=== PATIENT | female | born 1985 | race African-American/Black ===

== ENCOUNTER 2018-02-22 13:38 | Emergency (ER) | payer BC ==
[2018-02-22 13:43] VITALS: BMI 27.9
--- NOTE | 2018-02-22 14:29 | PDOC ---
History of Present Illness - General Chief Complaint: Vaginal Bleeding Stated Complaint: VAGINAL BLEEDING Time Seen by Provider: 02/22/18 13:50 History Source: Patient Exam Limitations: No Limitations - History of Present Illness Initial Comments: 02/22/18 14:16 32 yo female 1 miss talamantes currently between 5-6 weeks presents to the ED for 1 day of bloody vaginal discharge. Pt states she went to the bathroom to urinate today and after wiping noted maroon colored blood but denies continued bleeding or spotting. Of note, pt recently went to ED in [place] and told she was and also had a UTI, given antibiotics but only took 2 days of the 5 due to nausea. Patient had recent appointment with MOTION DESIGNER and told her beta HCG was in the 8000s and an IUP was visualized but FHR unattainable at that time. Today, pt denies abdominal pain/cramping, lightheadedness, continued discharge, N/V/F/C, burning or increased freq on urination, changes in bowel habits, hx of STDs (1 partner for the past 10 years) Past History - Past Medical History Allergies/Adverse Reactions: Allergies Allergy/AdvReac Type Severity Reaction Status Date / Time No Known Allergies Allergy Verified 02/22/18 13:43 Home Medications: Ambulatory Orders Cephalexin [Keflex] 500 mg PO BID 7 Days #14 capsule 02/22/18 Pnv No.103/Folic/Om3s/Fish Oil [ Gummies] 1 each PO ONCE 10 Days #10 tab.chew 02/22/18 COPD: No - Surgical History Appendectomy: Yes - Suicide/Smoking/Psychosocial Hx Smoking History: Never smoked Review of Systems - Review of Systems Constitutional: No: Chills, Fever Respiratory: No: Shortness of Breath Cardiac (ROS): No: Chest Pain ABD/GI: Yes: Other (no abdominal pain or cramping). No: Constipated, Diarrhea, Nausea, Vomiting : No: Burning, Dysuria, Discharge, Frequency Musculoskeletal: No: Back Pain Neurological: No: Numbness, Paresthesia, Weakness, Unsteady Gait, Dizziness *Physical Exam - Vital Signs Last Vital Signs Temp Pulse Resp BP Pulse Ox 98.5 F 93 H 18 125/67 98 02/22/18 13:41 02/22/18 13:41 02/22/18 13:41 02/22/18 13:41 02/22/18 13:41 - Physical Exam General Appearance: Yes: Nourished, Appropriately Dressed. No: Apparent Distress HEENT: positive: EOMI Respiratory/Chest: positive: Lungs Clear, Normal Breath Sounds Cardiovascular: positive: Regular Rhythm, Regular Rate, S1, S2. negative: Edema , JVD, Murmur Vascular Pulses: Dorsalis-Pedis (R): 4+, Doralis-Pedis (L): 4+ Female Pelvic Exam: positive: normal external exam, cervical os closed, normal adnexa, discharge (dark brown non oderess in the vagina on speculum exam). negative: CMT, vaginal bleeding Gastrointestinal/Abdominal: positive: Normal Bowel Sounds, Flat, Soft. negative : Pulsatile Mass, Distended, Guarding, Rebound, Tenderness Integumentary: positive: Normal Color, Dry, Warm Neurologic: positive: Fully Oriented, Alert, Normal Mood/Affect ED Treatment Course - LABORATORY CBC & Chemistry Diagram: 02/22/18 14:09 02/22/18 14:09 - RADIOLOGY Radiology Studies Ordered: Category Date Time Status TRANSVAGINAL US PREG [US] Stat Ultrasound 02/22/18 14:06 Ordered *DC/Admit/Observation/Transfer Diagnosis at time of Disposition: UTI in Qualifiers: Trimester: first trimester Qualified Code(s): O23.41 - Unspecified infection of urinary tract in , first trimester - Discharge Dispostion Disposition: HOME Condition at time of disposition: Stable Decision to Admit order: No - Prescriptions Prescriptions: Cephalexin [Keflex] 500 mg PO BID 7 Days #14 capsule Pnv No.103/Folic/Om3s/Fish Oil [ Gummies] 1 each PO ONCE 10 Days #10 tab.chew - Referrals - Patient Instructions Printed Discharge Instructions: DI for Urinary Tract Infection (UTI) Additional Instructions: Please keep and follow up with your appointment with your APPRENTICE PATTERN MAKER on the Feb. Dr. Chambers is expecting your call. Please return to the Emergency Room for new or worsening symptoms including but not limited to: continued bleeding, passing clots, abdominal pain, weakness or lightheadedness. Please take Keflex antibiotic for your UTI 2 times a day for 7 days Please take the multivitamin 1 time a day for 10 days and discuss further care with your APPRENTICE PATTERN MAKER Thank you - Post Discharge Activity
--- NOTE | 2018-02-22 14:29 | PDOC ---
Attending Attestation - HPI HPI: 02/22/18 15:26 The patient is a 32-year-old female, Currently, 5 weeks , presents to the emergency department with vaginal bleeding. The patient reports she noticed bright red blood on the tissue paper when she was wiping. The patient reports following up at an ER in [place], where she was informed that she was . The patient reports she was also treated for a UTI with an antibiotic. The patient reports she was unable to complete the abx course secondary to nausea. Denies fever, chills, nausea, vomiting, diarrhea dysuria, frequency or urgency to urinate. Allergies: NKA - Medical Decision Making 02/22/18 15:26 Documentation prepared by Edel Oliva, acting as medical corps officer for Jayleen Emmanuel MD. <Edel Oliva - Last Filed: 02/22/18 15:26> - Resident Resident Name: Yo Frey - ED Attending Attestation I have performed the following: I have examined & evaluated the patient, The case was reviewed & discussed with the resident, I agree w/resident's findings & plan, Exceptions are as noted - Physicial Exam PE: 02/22/18 15:53 GENERAL: The patient is in no acute distress. LUNGS: Breath sounds equal, clear to auscultation bilaterally. No wheezes, and no crackles. HEART:Regular rate and rhythm, normal S1 and S2 without murmur, rub or gallop. ABDOMEN: Soft, nontender, normoactive bowel sounds. No guarding, no rebound. No masses palpable. EXTREMITIES: Normal range of motion, no edema. No clubbing or cyanosis. No erythema, or tenderness. NEUROLOGICAL: Cranial nerves II through XII grossly intact. Normal speech. No focal neurological deficits. MUSCULOSKELETAL: Back non-tender to palpation, no CVA tenderness SKIN: Warm, Dry, normal turgor, no rashes or lesions noted. - Medical Decision Making 02/22/18 15:53 Laboratory Tests 02/22/18 02/22/18 02/22/18 14:09 14:09 14:09 WBC 7.4 Hgb 12.1 Hct 34.9 Plt Count 281 BUN 15 Creatinine 0.7 Urine Ketones Negative Urine Blood 3+ H Ur Leukocyte Esterase 3+ H Urine WBC (Auto) 43 Urine RBC (Auto) 14 Ur Epithelial Cells Many Urine Bacteria Few Urine Mucus Many Pending US Pending Type and screen 02/22/18 16:00 02/22/18 16:26 Laboratory Tests 02/22/18 14:09 Blood Type B POSITIVE US: IUP, HR 107 bpm <Jayleen Emmanuel - Last Filed: 02/22/18 16:26>
[2018-02-22 14:55] LABS: BASO % 0.7 % (0-2.0); EOS % 1.2 % (0-4.5); HEMATOCRIT 34.9 % (32.4-45.2); HEMOGLOBIN 12.1 GM/dL (10.7-15.3); LYMPH % 19.2 % (8-40); MCH 28.9 pg (25.7-33.7); MCHC 34.6 g/dl (32.0-36.0); MEAN CELL VOLUME 83.6 fl (80-96); MEAN PLT VOLUME 9.3 fl (7.5-11.1); MONO % 7.6 % (3.8-10.2); NEUT % 71.3 % (42.8-82.8); PLATELET COUNT 281 K/MM3 (134-434); RBC 4.18 M/mm3 (3.60-5.2); RDW 13.3 % (11.6-15.6); WHITE BLOOD COUNT 7.4 K/mm3 (4.0-10.0)
[2018-02-22 14:57] LABS: URINE APPEARANCE SLCLOUDY; URINE BILIRUBIN NEGATIVE (<2.0 mg/dL); URINE COLOR YELLOW; URINE GLUCOSE (UA) NEGATIVE (NEGATIVE); URINE KETONE NEGATIVE (NEGATIVE); URINE LEUK ESTERASE 3+ (NEGATIVE); URINE NITRITE NEGATIVE (NEGATIVE); URINE PROTEIN NEGATIVE (NEGATIVE)
[2018-02-22 15:02] LABS: EPI CELLS MANY /HPF (FEW); URINE BACTERIA FEW /hpf (NONE SEEN); URINE MUCUS MANY
[2018-02-22 15:11] LABS: INR 0.97 (0.83-1.09); PROTHROMBIN TIME (PATIENT) 11.5 SEC (9.7-13.0)
[2018-02-22 15:14] LABS: ACTIVATED PTT 27.5 SECONDS (25.2-36.5)
[2018-02-22 15:21] LABS: ALBUMIN 3.9 g/dl (3.4-5.0); ALK PHOS 74 U/L (45-117); ANION GAP 8 MMOL/L (8-16); BILIRUBIN,TOTAL 0.3 mg/dL (0.2-1); BLOOD UREA NITROGEN 15 mg/dL (7-18); CALCIUM 9.1 mg/dL (8.5-10.1); CHLORIDE 104 mmol/L (98-107); CO2 25 mmol/L (21-32); CREATININE 0.7 mg/dL (0.55-1.3); GLUCOSE,RANDOM 91 mg/dL (74-106); POTASSIUM 3.9 mmol/L (3.5-5.1); SGOT/AST 13 U/L (15-37); SGPT/ALT 16 U/L (13-61); SODIUM 137 mmol/L (136-145); TOT PROT 7.5 g/dl (6.4-8.2)
[2018-02-22 17:34] VITALS: BP 116/56; PULSE 80; TEMP 99.4
== END 2018-02-22 17:34 | disposition home or self-care (01) ==
LOC: JER 13:38
DX: O26.891 Other specified pregnancy related conditions, first trimester (principal); O23.41 Unspecified infection of urinary tract in pregnancy, first trimester; Z3A.01 Less than 8 weeks gestation of pregnancy
CPT/HCPCS: 36415; 76817-TC; 80053; 81003; 81015; 84702; 85025; 85610; 85730; 86850; 86900; 86901; 87086; 87491; 87591; 99282-25

== ENCOUNTER 2019-01-23 15:28 | Emergency (ER) | payer OTHER, BC ==
[2019-01-23 15:40] VITALS: BP 119/74; PULSE 87; TEMP 98; BMI 25.0
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
== END 2019-01-23 16:15 | disposition home or self-care (01) ==
LOC: JERFT 15:28
DX: S16.1XXA Strain of muscle, fascia and tendon at neck level, initial encounter (principal); V47.5XXA Car driver injured in collision with fixed or stationary object in traffic accident, initial encounter; Y92.488 Other paved roadways as the place of occurrence of the external cause; Y93.89 Activity, other specified; Y99.8 Other external cause status
CPT/HCPCS: 99281-25